=== PATIENT | female | born 1965 | race Caucasian/White ===

== ENCOUNTER 2023-09-14 12:51 | Emergency (ER) | payer OTHER ==
[~2023-09-14] VITALS: Ht 157.5 cm; Wt 56.7 kg
[2023-09-14] MEDS ORDERED: ALTOPREV40 MG PO (13:58)
[2023-09-14] MEDS ORDERED: AMLODIPINE BESYL5 MG PO (13:59)
== END 2023-09-14 14:59 | disposition home or self-care (01) ==
LOC: ER 12:52
DX: H60.8X9 Other otitis externa, unspecified ear (principal); H91.8X9 Other specified hearing loss, unspecified ear; I10 Essential (primary) hypertension